=== PATIENT | male | born 1950 | race Caucasian/White ===

== ENCOUNTER → 2019-05-08 | Outpatient (RCR) | payer MEDICARE, OTHER ==
[~2019-05-08] MED LIST: KLONOPIN2 MG PO; NORCO 7.5-3251 EACH PO
== END ==
LOC: PT 16:01
PROVIDERS: ATTEND Internal Medicine Interventional Cardiology
DX: M25.572 Pain in left ankle and joints of left foot (principal); M25.672 Stiffness of left ankle, not elsewhere classified; R26.2 Difficulty in walking, not elsewhere classified; M62.81 Muscle weakness (generalized); R53.81 Other malaise

== ENCOUNTER 2019-06-07 15:00 | Outpatient (RCR) | payer MEDICARE, OTHER | END 2019-06-08 | LOC: PT 15:00 | PROVIDERS: ATTEND Internal Medicine Interventional Cardiology | DX: M25.672 Stiffness of left ankle, not elsewhere classified (principal); M62.81 Muscle weakness (generalized); R53.81 Other malaise; R26.2 Difficulty in walking, not elsewhere classified ==

== ENCOUNTER → 2019-07-08 | Outpatient (RCR) | payer MEDICARE, OTHER | LOC: PT 06-17 14:56 | PROVIDERS: ATTEND Internal Medicine Interventional Cardiology | DX: M25.672 Stiffness of left ankle, not elsewhere classified (principal); R53.81 Other malaise; M62.81 Muscle weakness (generalized); R26.2 Difficulty in walking, not elsewhere classified ==

== ENCOUNTER → 2021-08-31 | Outpatient (CLI) | payer MEDICARE, OTHER ==
[~2021-08-31] MED LIST changes: +IOPAMIDOL 370 MG/ML 200 ML INFUS..BTL INJ ONE; +SODIUM CHLORIDE 0.9% 100 ML ONE; +SODIUM CHLORIDE 0.9% 50ML 50 ML ONE
[2021-08-31 10:20] LABS: CREATININE, SERUM 1.07 mg/dL (0.72-1.25)
== END ==
LOC: CT 09:05
PROVIDERS: ATTEND Internal Medicine Interventional Cardiology
DX: I73.9 Peripheral vascular disease, unspecified (principal)
CPT/HCPCS: 36415; 75635; 82565; 84520; J7050; Q9967

== ENCOUNTER → 2021-10-19 | Day surgery (SDC) | payer MEDICARE, OTHER ==
[2021-10-15 10:20] LABS: BASOPHILS # (AUTO) 0.1 (0.0-0.1); BASOPHILS % 0.9 % (0.0-1.0); EOSINOPHILS # (AUTO) 2.1 (0.0-0.4); EOSINOPHILS % 23.8 % (0.0-6.0); HEMATOCRIT 37.3 % (38.2-49.6); HEMOGLOBIN 11.7 g/dL (14.0-18.0); LYMPHOCYTES # (AUTO) 2.1 (1.0-3.2); LYMPHOCYTES % 23.1 % (18.0-39.1); MEAN CORPUSCULAR HEMOGLOBIN 29.8 pg (28-32); MEAN CORPUSCULAR HGB CONC 31.4 g/dL (31-35); MEAN CORPUSCULAR VOLUME 95.2 fL (81-99); MONOCYTES # (AUTO) 0.6 (0.2-0.8); MONOCYTES % 6.8 % (4.4-11.3); NEUTROPHILS # (AUTO) 4.1 (2.1-6.9); NEUTROPHILS % 45.1 % (38.7-80.0); PLATELET COUNT 187 x10e3/uL (140-360); RED BLOOD COUNT 3.92 x10e6/uL (4.3-5.7); RED CELL DISTRIBUTION WIDTH 14.6 % (11.7-14.4)
[2021-10-15 11:09] LABS: ALBUMIN 3.4 g/dL (3.5-5.0); ALBUMIN/GLOBULIN RATIO 0.9 (0.8-2.0); ANION GAP 13.7 mmol/L (8-16); CALCIUM 9.5 mg/dL (8.4-10.2); CREATININE, SERUM 1.13 mg/dL (0.72-1.25); POTASSIUM 4.7 mmol/L (3.5-5.1)
[2021-10-15 12:04] LABS: EOSINOPHILS % (MANUAL) 27 % (0-7); LYMPHOCYTES % (MANUAL) 14 % (19-48); MONOCYTES % (MANUAL) 9 % (3.4-9.0); NEUTROPHILS % (MANUAL) 46 % (40-74)
[2021-10-15 12:05] LABS: PLATELET ESTIMATE ADEQUATE; PLATELET MORPHOLOGY COMMENT NORMAL; RBC MORPHOLOGY COMMENT NORMAL
[~2021-10-19] VITALS: Ht 177.8 cm; Wt 85.3 kg
[2021-10-19] VITALS (9 sets, daily range): BP systolic 112–132; BP diastolic 67–92
[~2021-10-19] MED LIST changes: +ALPRAZOLAM 0.5 MG TAB ONE; +CYCLOBENZAPRINE10 MG PO; +DIPHENHYDRAMINE HCL 25 MG CAP ONE; +ELIQUIS5 MG PO; +FENTANYL CITRATE/PF 100MCG/2 ML INJ ONE; +HEPARIN SOD/SOD CHLORIDE 2,000 ML ONE; +IOPAMIDOL 300MG/ML 100 ML INFUS..BTL IV ONE; -IOPAMIDOL 370 MG/ML 200 ML INFUS..BTL INJ ONE; +LIDOCAINE HCL 2% LOCAL 20 ML VIAL ONE; +LYRICA75 MG PO; +MIDAZOLAM HCL 2 MG/2 ML VIAL ONE; +Morphine 4mg Syringe 4 MG/ML INJ ONE; +NORCO PO; +OMEPRAZOLE40 MG PO; +PENTOXIFYLLINE400 MG PO; -SODIUM CHLORIDE 0.9% 100 ML ONE; +SODIUM CHLORIDE 0.9% 1000ML 1,000 ML ONE; -SODIUM CHLORIDE 0.9% 50ML 50 ML ONE; +WELLBUTRIN XL300 MG PO
== END | disposition home or self-care (01) ==
LOC: CATH LAB 13:10
PROVIDERS: ATTEND Internal Medicine Interventional Cardiology
DX: I70.213 Atherosclerosis of native arteries of extremities with intermittent claudication, bilateral legs (principal); Z98.62 Peripheral vascular angioplasty status; E78.2 Mixed hyperlipidemia; D68.9 Coagulation defect, unspecified; F17.210 Nicotine dependence, cigarettes, uncomplicated; Z88.8 Allergy status to other drugs, medicaments and biological substances; Z01.812 Encounter for preprocedural laboratory examination; Z20.822 Contact with and (suspected) exposure to COVID-19; Z79.02 Long term (current) use of antithrombotics/antiplatelets; Z86.2 Personal history of diseases of the blood and blood-forming organs and certain disorders involving the immune mechanism; Z86.718 Personal history of other venous thrombosis and embolism; Z82.49 Family history of ischemic heart disease and other diseases of the circulatory system
CPT/HCPCS: 36140; 36415; 75625; 76937; 80053; 85025; C1769 ×2; C1894; J2001; J2250; J2270; J3010; J7030; Q9967; U0002; 36246; 99152